=== PATIENT | female | born 1995 | race Caucasian/White ===

== ENCOUNTER 2019-02-17 11:44 | Emergency (ER) | payer OTHER ==
[~2019-02-17] VITALS: Ht 167.6 cm; Wt 52.9 kg
[~2019-02-17 11:44] MED LIST: CYCL10TA7 PO; IBUP-1542 PO
[2019-02-17 11:49] VITALS: BP 102/57; PULSE 94; RESP 17; Ht 167.6 cm; Wt 52.9 kg
[2019-02-17] MEDS ORDERED: IBUPROFEN 600 MG TAB PO ONE (12:30)
== END 2019-02-17 13:22 | disposition home or self-care (01) ==
LOC: FTE 11:44
DX: M54.6 Pain in thoracic spine (principal)
CPT/HCPCS: 71045; 72072; 81025; 93005